=== PATIENT | female | born 1980 | race Two or more races ===

== ENCOUNTER 2024-08-09 23:25 | Emergency (ER) | payer OTHER ==
[~2024-08-09] VITALS: Ht 167.6 cm; Wt 75.0 kg
--- NOTE | 2024-08-10 00:56 | DVH ---
HISTORY: Right-sided facial pain/trauma TECHNIQUE: Nonenhanced axial images through the facial bones with coronal and sagittal MPR. Radiation Dose Information: CT Dose: CTDI volume is mGy. Dose-length product is mGy*cm COMPARISON: None FINDINGS: Soft tissues: Unremarkable Mandible: Unremarkable Maxilla: Unremarkable Zygomatic arches: Unremarkable Nasal bone: Unremarkable Orbits: Mild old fracture of left medial orbital wall. Otherwise unremarkable. No intraorbital abno rmality noted. Paranasal sinuses/Mastoid air cells/Middle ear cavities: Mild mucosal thickening in left maxillary s inus; otherwise unremarkable. Mastoid air cells and middle ear cavities are clear. IMPRESSION: No acute abnormality demonstrated. Radiation optimization: All CT scans at this facility use at least one of these dose optimization hernandez hniques: automated exposure control mA and/or kV adjustment per patient size (includes targeted exam s where dose is matched to clinical indication) or iterative reconstruction.
[2024-08-10] MEDS ORDERED: IBUP-1455 PO (01:35)
[2024-08-10] MEDS ORDERED: ACET500T58 PO (01:35)
--- NOTE | 2024-08-10 01:36 | ED.PDOC ---
History of Present Illness HPI Comments This patient is a pleasant 44-year-old female who arrives the ED today for evaluation of head trauma sustained earlier today. Patient states she was at work when she went to utilize the bathroom sink after which, patient states a rock of some kind fell from the ceiling, striking her on the right side of her f roddy and shoulder. Patient denies any LOC or blood loss. Patient states she manage it for an hour two, but began having headache concerns and facial pain. Patient arrives A&O x4. Chief Complaint: Head Injury Time Seen by MD: 23:26 Reviewed Notes: Nurses Notes Allergies: Coded Allergies: NO KNOWN ALLERGIES (Unverified , 08/10/24) Information Source: Patient Mode of Arrival: Ambulatory Severity: Moderate Timing: Hours Duration: Since onset Prehospital treatment: None Past Medical History PAST MEDICAL HISTORY: Denies Surgical History: Denies all surgeries MOLD MECHANIC History: No Pertinent MOLD MECHANIC History Family History Family History: Reviewed,noncontributory to illness, No family hx of Cancer, No family hx of DM, No family hx of Heart loco, No family hx of HTN, No family hx ofKidney loco, No family hx of Liver loco, No family hx of Lung loco, No family hx of Stroke Social History Smoker: Non-Smoker Alcohol: Denies ETOH Use Drugs: Denies Drug Use Lives In: Home Constitutional: denies: chills, diaphoresis, fatigue, fever, malaise, sweats, weakness, others EENTM: reports: others (Right-sided face pain); denies: blurred vision, double vision, ear bleeding, ear discharge, ear drainage, ear pain, ear ringing, eye pain, eye redness, hearing loss, mouth pain, mouth swelling, nasal discharge, nose bleeding, nose congestion, nose pain, photophobia, tearing, throat pain, throat swelling, voice changes Respiratory: denies: cough, hemoptysis, orthopnea, SOB at rest, shortness of breath, SOB with excertion, stridor, wheezing, others Cardiovascular: denies: chest pain, dizzy spells, diaphoresis, Dyspnea on exertion, edema, irregular heart beat, left arm pain, lightheadedness, palpitations, PND, syncope, others Gastrointestinal: denies: abdomen distended, abdominal pain, blood streaked bowels, constipated, diarrhea, dysphagia, difficulty swallowing, hematemesis, melena, nausea, poor appetite, poor fluid intake, rectal bleeding, rectal pain, vomiting, others Neurological: reports: headache; denies: dizziness, fainting, left sided numbness, left sided weakness, numbness, paresthesia, pre-existing deficit, right sided numbness, right sided weakness, seizure, speech problems, tingling, tremors, weakness, others Musculoskeletal: denies: back pain, gout, joint pain, joint swelling, muscle pain, muscle stiffness, neck pain, others Integumetry: denies: bruises, change in color, change in hair/nails, dryness, laceration, lesions, lumps, rash, wounds, others Allergic/Immunocompromised: denies: Difficulty Healing, Frequent Infections, Hives, Itching, others Hematologic/Lymphatic: denies: anemia, blood clots, easy bleeding, easy bruising, swollen glands, others Endocrine: denies: excessive hunger, excessive sweating, excessive thirst, excessive urination, flushing, intolerance to cold, intolerance to heat, unexplained weight gain, unexplained weight loss, others Psychiatric: denies: anxiety, bipolar disorder, depression, hopeless, panic disorder, schizophrenia, sleepless, suicidal, others Physical Exam General Appearance: Moderate Distress (Moderate distress due to facial and head pain concerns.), Normal HEENT: Head (Relatively unremarkable exam on right-sided face. Some possible erythema noted to the zygomatic region. No skull depressions or deformities. No lacerations or blood loss.), Normal ENT Inspection, Pharynx Normal, TMs Normal Neck: Full Range of Motion, Non-Tender, Normal, Normal Inspection Respiratory: Chest Non-Tender, Lungs Clear, No Accessory Muscle Use, No Respiratory Distress, Normal Breath Sounds Cardiovascular: No Edema, No JVD, No Murmur, No Gallop, Normal Peripheral Pulses, Regular Rate/Rhythm Breast Exam: Deferred Gastrointestinal: No Organomegaly, Non Tender, No Pulsatile Mass, Normal Bowel Sounds, Soft Genitalia: Deferred Pelvic: Deferred Rectal: Deferred Extremities: No calf tenderness, Normal capillary refill, Normal inspection, Normal range of motion, Non-tender, No pedal edema Neurologic: Alert, No Motor Deficits, Normal Affect, Normal Mood, No Sensory Deficits Cerebellar Function: Normal Reflexes: Normal Skin: Dry, Normal Color, Warm Lymphatic: No Adenopathy Was a procedure done? Was a procedure done?: No Differential Dx Considerations may include: Subarachnoid hemorrhage, subdural hematoma, facial fracture, skull fracture, facial trauma X-Ray, Labs, Meds, VS Vital Signs Date Time Temp Pulse Resp B/P (MAP) Pulse Ox O2 Delivery O2 Flow Rate FiO2 08/10/24 00:02 98.1 80 16 145/103 (117) 97 98.1 X-Ray, Labs, Meds, VS Comment All studies performed in the ED were evaluated by me personally. Imaging studies were unremarkable for any acute intracranial process. Patient appears to sustained a facial contusion. Advise utilizing pain medication as needed as well as ice therapy. Time of 1ST Reevaluation: Reevaluation 1ST: Improved Consultation: PCP, Other (Chata ohara MD) Patient Education/Counseling: Diagnosis, Treatment Family Education/Counseling: Diagnosis, Treatment Departure 1 Departure Time of Disposition: Impression: Primary Impression: Facial trauma Disposition: HOME / SELF CARE / HOMELESS Condition: Stable Additional Instructions: Advised patient utilize pain medication as needed as well as ice therapy. Patient should follow up with chata ohara MD for evaluation. e-Prescriptions Acetaminophen (Acetaminophen) 500 Mg Tab 500 MG PO Q4HP PRN, #20 TAB Prov: RICK VÁSQUEZ PAC 08/10/24 Ibuprofen Micronized (Ibuprofen) 800 Mg Tab 800 MG PO Q8HP PRN, #20 TAB Prov: RICK VÁSQUEZ PAC 08/10/24 Discharged With: Self, Friend Critical Care Note Critical Care Time?: No Stability Stability form required: No Heart Score Heart Score: Heart Score Response (Comments) Value History N/A 0 EKG N/A 0 Age N/A 0 Risk Factors N/A 0 Troponin N/A 0 Total 0 RICK VÁSQUEZ PAC Aug 10, 2024 01:36
[2024-08-10] MEDS: HYDROcodone-ACET 10/325MG TAB PO ONE (01:52)
[2024-08-10] MEDS: IBUPROFEN 800 MG TAB PO ONE (01:58)
[2024-08-10 01:59] VITALS: BP 131/80; TEMP 98.2
[2024-08-10 02:04] VITALS: PULSE 81; RESP 19; O2SAT 100
== END 2024-08-10 02:06 | disposition home or self-care (01) ==
LOC: ER 23:25
DX: S09.8XXA Other specified injuries of head, initial encounter (principal); W19.XXXA Unspecified fall, initial encounter; Y93.89 Activity, other specified; Y92.89 Other specified places as the place of occurrence of the external cause; Y99.8 Other external cause status
CPT/HCPCS: 70486